=== PATIENT | female | born 1990 | race Caucasian/White ===

== ENCOUNTER 2017-11-28 20:25 | Inpatient (IN) | payer OTHER ==
[2017-11-28 20:45] VITALS: BMI 23.2
[2017-11-28] MEDS ORDERED: Oxytocin 30 UNIT 30 UNITS/500 ML BAG IV PRN (20:55)
[2017-11-28] MEDS ORDERED: Lactated Ringer's 1,000 ML IV SCH ×2 (21:00)
[2017-11-28 21:47] LABS: BASO % 0.3 % (0.0-2.0); EOS # 0.3 K/uL (0.0-0.7); EOS % 2.1 % (0.0-4.0); HEMOGLOBIN 11.6 g/dL (11.0-16.0); LYMPH # 3.7 K/uL (1.0-4.3); LYMPH % 27.1 % (20.0-40.0); MEAN CELL VOLUME 88.5 fL (81.0-99.0); MEAN CORPUSCULAR HEMOGLOBIN 29.5 pg (27.0-31.0); MEAN CORPUSCULAR HGB CONC 33.3 g/dL (33.0-37.0); MEAN PLATELET VOLUME 11.9 fL (7.2-11.7); MONO % 7.7 % (0.0-10.0); NEUT # 8.6 K/uL (1.8-7.0); NEUT % 62.8 % (50.0-75.0); NRBC % 0.1 % (0.0-2.0); RBC 3.95 Mil/uL (3.80-5.20); RED CELL DISTRIBUTION WIDTH 14.1 % (11.5-14.5); WHITE BLOOD COUNT 13.7 K/uL (4.8-10.8)
[2017-11-28 21:52] LABS: ALBUMIN 3.7 g/dL (3.5-5.0); ALT/SGPT 33 U/L (9-52); AST/SGOT 32 U/L (14-36); BLOOD UREA NITROGEN 8 mg/dL (7-17); CALCIUM 8.7 mg/dl (8.6-10.4); GFR AFRICAN-AMERICAN > 60; GFR NON-AFRICAN AMERICAN > 60
[2017-11-28 22:01] LABS: SQUAMOUS EPITHIAL 4 /hpf (0-5); URINE BACTERIA OCC (<OCC); URINE BILIRUBIN NEGATIVE (NEGATIVE); URINE BLOOD NEGATIVE (NEGATIVE); URINE CLARITY Hazy (Clear); URINE COLOR Straw (YELLOW); URINE GLUCOSE (UA) NORMAL (Normal); URINE LEUKOCYTE ESTERASE TRACE Leu/uL (Negative); URINE NITRATE NEGATIVE (NEGATIVE); URINE PROTEIN NEGATIVE (NEGATIVE); URINE UROBILINOGEN NORMAL mg/dL (0.2-1.0)
--- NOTE | 2017-11-28 22:21 | OBHP ---
Datetime: 11/28/2017 21:48 IP Adm Impression: Postterm, intrauterine ; No Active Labor; Intact Membranes IP Admit Plan: Admit to unit; Initiate labor augmentation protocol Admit Comment, IP Provider: This is a private patient of Dr. Wright Patient initially evaluated at 2040 hours 28 y.o , LMP 02/19/17, RITO 11/26/17, EGA 40w 2d by sono 05/19/17 at 12w 2d c/o decreased mo vememnt as of 150 0hours. Denies LOF, VB; (+) occ Ctx. care: Dr. Wright - no issues. Chart re view noted for Rubella and varicella non immune. 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 Denies STIs or abnormal Pap PMH: denies PSH: 2013, surgery on right leg - fracture; denies ORIF NKDA Meds: PNV - QD Soc Hx: denies tobacco, illicit drug or EtOH use. x 1 1/2 years. Not working in the Fam Hx: Mother alive 55 - heart disease; S/P heart surgery. Father alive - HTN. Denies fam h/o CA P.E.: as above. Petite, in NAD (startled each time fetus moved). Awake, alert, oriented to time, p erson, place. Pleasant and cooperative. , and mother in law present Assessment: 28 y.o. P0, 40w 1d, late latent phase of labor; decreased movement. NST reactiv e/ Category 1 tracing. Case D/W Dr. Wright: patient for admission and augmentaiton. This was explained to patient; pain management options also discussed. Patient expressed an understanding and agree; no questions offered. GBS (-). Rubella non immune. Patient is clinically stable. Plan: 1) Admit 2) NPO 3) IVFs 4) Continuous EFM 5) Pitocin 6) pain management, upon request 7) Anticipate vaginal delivery 8) MMR after delivery - as per, and discussed with, Dr. Wright Pelvic Type - PN: Adequate Extremities - PN: Normal Abdomen - PN: Normal Back - PN: Normal Breast - PN: Not Done Lungs - PN: Normal Heart - PN: Normal Thyroid - PN: Not Done Neurologic - PN: Normal HEENT - PN: Normal General - PN: Normal Weight - Estimated: 3065 Presentation-Admit: Vertex FHR - Baseline A Provider: 145 Contraction Comments Provider: irregular Comments, ACOG Physical Exam: Abdomen: Gravid. Soft. Non tender. Fundal height 40 cm All other systems reviewed and are negative Gestation - Est Wks by US: 40w 2d IP Hx Assessment: The History has been Reviewed and is Current EGA AdmitDate IP: 40.1 Vital Signs Provider: Reviewed IP Indication for Induction: Not Applicable IP Chief Complaint: Decreased movement NICHD Variability Prov Fetus A: Moderate 6-25bpm NICHD Accel Fetus A IP Provider: 15X15 FHR Category Provider Fetus A: Category I NICHD Decel Fetus A IP Provider: None Dilatation, Provider: 3-4 Effacement, Provider: 60 Station, Provider: -3 Genitourinary Exam: Normal DTRs - PN: Not Done
--- NOTE | 2017-11-29 00:19 | OBPN ---
Datetime: 11/29/2017 00:12 IP Progress Impression: Normal progression of labor IP Procedures: Artificial ROM IP Progress Plan: Continue present management; Augmentation; Anesthesia consult; Anticipate Vaginal Delivery Membranes, Provider: Ruptured Amniotic Fluid Color, Provider: Clear Contraction Comments Provider: 1 FHR - Baseline A Provider: 140 Gestation - Est Wks by US: 40w 2d Presentation-Admit: Vertex IP Progress Note Comment: Patient sleepng soundly; easliy awakened Cervical exam - as above. AROM performed (at the request of Dr. Wright) - moderate amount of clear am nionic fluid. Pitocin = 4 mUnits (decreased from 6) Assessment: 28 y.o. P0, 40w 2d, entering active phase of labo on pitocin. AROM as above. Category 1 tracing. Clinically stable. Plan: 1) Pain managment, upon request 2) Anticipate vaginal delivery NICHD Accel Fetus A IP Provider: 15X15 FHR Category Provider Fetus A: Category I NICHD Variability Prov Fetus A: Moderate 6-25bpm Dilatation, Provider: 5 Effacement, Provider: 70 Station, Provider: -3 NICHD Decel Fetus A IP Provider: None Datetime: 11/28/2017 21:48 Weight - Estimated: 3065 Vital Signs Provider: Reviewed
[2017-11-29] MEDS ORDERED: Bupivacaine 0.125%/FentaNYL 200 ML EPI ONE (01:18)
[2017-11-29] MEDS ORDERED: Oxycodone/Acetaminophen 5/325 mg Tab PO PRN ×2 (04:44)
--- NOTE | 2017-11-29 04:44 | OBDS ---
DELIVERY PERSONNEL Delivery Doctor: Dr Wright Global Cmo: Itzel Lo RN Anesthesiologist: Dr Taylor MATERNAL INFORMATION Delivery Anesthesia: Epidural Medications in Delivery: Pitocin 20 units IV Estimated Blood Loss (ml): 200 Placenta Cultured: Yes Maternal Complications: None Provider Comments: BISHNU, right shoulder anterior with maternal pushing, no dystocia, spontaneous plac enta intact, marginal cord insertion LABOR SUMMARY EDC: 11/27/2017 00:00 No. Babies in Womb: 1 Labor Anesthesia: Epidural LABOR INFORMATION Reason for Induction: Not Applicable Onset of Labor: 11/28/2017 19:00 Complete Dilatation: 11/29/2017 03:06 Oxytocin: Augmentation Group B Beta Strep: Negative Steroids Given: None Reason Steroids Not Administered: Not Applicable MEMBRANES Membranes Rupture Method: Artificial Rupture of Membranes: 11/29/2017 00:13 Length of Rupture (hrs): 4.02 Amniotic Fluid Color: Clear Amniotic Fluid Amount: Large Amniotic Fluid Odor: Normal STAGES OF LABOR Stage 1 hrs: 8 Stage 1 min: 6 Stage 2 hrs: 1 Stage 2 min: 8 Stage 3 hrs: 1 Stage 3 min: 6 Total Time in Labor hrs: 10 Total Time in Labor min: 20 VAGINAL DELIVERY Episiotomy: None Laceration Extension: Second Degree Laceration Type: Sulcus Laceration Repair Note: 2-0 chromic for bleeding sites Initial Vag Sponge Count: 10 Final Vag Sponge Count: 10 Initial Vag Sharps Count: 0 Final Vag Sharps Count: 1 Sponge Count Correct: Yes; Vaginal Sweep Performed Sharps Count Correct: Yes BABY A INFORMATION Infant Delivery Date/Time: 11/29/2017 04:14 Method of Delivery: Vaginal Born in Route : No : N/A Forceps: N/A Vacuum Extraction: N/A Shoulder Dystocia : No SHOULDER DYSTOCIA BABY A Infant Delivery Date/Time: 11/29/2017 04:14 PRESENTATION/POSITION BABY A Presentation: Cephalic Cephalic Presentation: Vertex PLACENTA INFORMATION BABY A Placenta Delivery Time : 11/29/2017 05:20 Placenta Method of Delivery: Spontaneous Placenta Status: Delivered SCORES BABY A Heart Rate 1 min: >100 bpm Resp Effort 1 min: Good Cry Reflex Irritability 1 min: Cough or Sneeze or Pulls Away Muscle Tone 1 min: Active Motion Color 1 min: Body [place], Extremities Blue SCORE 1 MIN: 9 Heart Rate 5 min: >100 bpm Resp Effort 5 min: Good Cry Reflex Irritability 5 min: Cough or Sneeze or Pulls Away Muscle Tone 5 min: Active Motion Color 5 min: Body [place], Extremities Blue SCORE 5 MIN: 9 INFORMATION BABY A Gestational Age at Delivery: 40.2 Gestational Status: Term Outcome : Liveborn Infant Condition : Stable Sex: Female IDENTIFICATION/MEDS BABY A ID Band Number: [id number] ID Band Location: Left Leg; Left Arm Sensor Applied: Yes Sensor Number: [id number] Sensor Location : Cord Clamp Vitamin K Given : Aquamephyton 1 mg IM; Left Thigh Erythromycin Given: Given Both Eyes WEIGHT/LENGTH BABY A Birthweight (gms): 2585 Infant Weight (lb): 5 Weight (oz): 11 Infant Length Inches: 19.00 Infant Length cms: 48.3 CORD INFORMATION BABY A No. Cord Vessels: 3 Nuchal Cord : N/A Cord Blood Taken: Yes Suction: Mouth ASSESSMENT BABY A Complications: None Physical Findings at Delivery: Within Normal Limits Infant Respirations: Appears Normal Respiratory Care Program Director/ALS Called : No Care By: Yesy Garcia Transferred To: Remains with Mother
[2017-11-29] MEDS ORDERED: Oxytocin 30 UNIT 30 UNITS/500 ML BAG IV SCH (11:15)
[2017-11-29 16:59] LABS: BASO % 0.2 % (0.0-2.0); EOS # 0.1 K/uL (0.0-0.7); EOS % 0.5 % (0.0-4.0); LYMPH # 2.5 K/uL (1.0-4.3); LYMPH % 16.8 % (20.0-40.0); MEAN CELL VOLUME 87.8 fL (81.0-99.0); MEAN CORPUSCULAR HEMOGLOBIN 29.4 pg (27.0-31.0); MEAN CORPUSCULAR HGB CONC 33.5 g/dL (33.0-37.0); MEAN PLATELET VOLUME 10.5 fL (7.2-11.7); MONO # 1.1 K/uL (0.0-0.8); NEUT # 11.4 K/uL (1.8-7.0); NEUT % 75.5 % (50.0-75.0); RBC 3.24 Mil/uL (3.80-5.20); RED CELL DISTRIBUTION WIDTH 14.2 % (11.5-14.5); WHITE BLOOD COUNT 15.1 K/uL (4.8-10.8)
[2017-11-29 17:11] LABS: HEMOGLOBIN 9.5 g/dL (11.0-16.0)
--- NOTE | 2017-11-30 19:44 | OBPPN ---
Datetime: 11/30/2017 08:41 PP Pain Prov: Within normal limits PP Nausea Prov: Denies PP Flatus Prov: Yes PP BM Prov: Yes PP Heart Prov: Normal PP Lungs Prov: Normal PP Abdomen/Uterus Prov: Normal PP Lochia Prov: Normal PP Extremities Prov: Normal PP Progress Prov: Normal PP Comments Phys Exam Prov: Abdomen: Soft, non-tender, fundus is firm and below the umbilicus PP Impression Prov: Normal progression PP Plan Prov: Continue present management PP Progress Note Prov: Patient was seen and examined at bedside. Patient reports that she is doing w ell and pain is very well-controlled. Patient reports that she is passing flatus, had a bowel movemen t, urinating without difficulty and mild lochia. Patient is tolerating diet and ambulating without di fficulty. Patient is breast feeding. Patient denies fever, chills, nausea, vomiting, chest pain, palp itation, calf tenderness, SOB. Labs: 13.7>11.6/34.9<232, 15.1<9.5/28.5<193 A+, Rubella Non-immune VS: BP: 103/65, HR: 77, Temp: 97.5 Physical Examination : Gen: Well-appearing, NAD Cardio: RRR, Normal S1, S2 Pulm: CTA bilaterally Abd: Soft, + bowel sounds in all 4 quadrants, fundus is firm and slightly below the umbilicus Ext: No edema, no clubbing and no cyanosis, no calf tenderness A/P: 27 year old at 40 weeks 2days who is now , S/P PPD#1 1. Stable, Afebrile 2. Pain control: Motrin and percocet 3. Encourage hydration and ambulation 4. Encourage breast feeding 5. Ferrous sulfate 325mg PO BID 6. MMR prior to discharge 7. Continue present managemement 8. Anticipate discharge tomorrow Maddie Childers DO, PGY-1 agree with resident, discharge instructions given, pt can be d/c tomorrow if stable MD Kyle
--- NOTE | 2017-11-30 19:47 | OBDCSUM ---
Datetime: 11/30/2017 19:44 Discharged to, Provider: Home Follow up at, Provider: Kyle Mixon Instr Activity: Normal activity Disch Instr Diet: Regular Discharge Instructions, Provider: Routine instructions given Discharge Diagnosis, Provider: Term Delivered Discharge Time: 12/01/2017 12:00 Follow up in weeks, Provider: 1 wk Disch Referrals: None Contraception discussed, Prov: Yes Disch Activity Restrictions: No driving; Minimize walking; Minimize stair-climbing; No sexual activi ty; Nothing in vagina - [place], tampons, douche
[2017-12-01] MEDS ORDERED: Measles, Mumps, and Rubella 0.5 ML VIAL SC ONE (08:35)
[2017-12-01] MEDS ORDERED: Influenza Vaccine 60 mcg/0.5 mL SYR (4YR UP) IM ONE (10:52)
[2017-12-01 19:08] VITALS: BP 108/73; PULSE 55; RESP 18; TEMP 97.5; O2SAT 99
== END 2017-12-01 14:20 | disposition home or self-care (01) | DRG 775 ==
LOC: C.EROB 20:25 → C.4D 20:52 → UNDOADMIN 20:54 → C.4D 20:54 → C.4M 11-29 06:03
PROVIDERS: ADMIT Obstetrics & Gynecology; ATTEND Obstetrics & Gynecology
PROC: 10E0XZZ Delivery of Products of Conception, External Approach (ICD-10-PCS; principal; 2017-11-29)
PROC: 0KQM0ZZ Repair Perineum Muscle, Open Approach (ICD-10-PCS; 2017-11-29)
PROC: 10907ZC Drainage of Amniotic Fluid, Therapeutic from Products of Conception, Via Natural or Artificial Opening (ICD-10-PCS; 2017-11-29)
DX: O63.0 Prolonged first stage (of labor) (principal); O36.8130 Decreased fetal movements, third trimester, not applicable or unspecified; O70.1 Second degree perineal laceration during delivery; Z3A.40 40 weeks gestation of pregnancy; Z37.0 Single live birth